=== PATIENT | female | born 1985 | race Caucasian/White ===

== ENCOUNTER 2024-02-07 19:46 | Emergency (ER) | payer BC, OTHER ==
[2024-02-07 20:00] VITALS: BP 0/0; BMI 33.5
== END 2024-02-07 20:17 | disposition left against medical advice (07) ==
LOC: FER 19:46
DX: O99.893 Other specified diseases and conditions complicating puerperium (principal); R07.81 Pleurodynia; R05.9 Cough, unspecified; Z3A.31 31 weeks gestation of pregnancy
CPT/HCPCS: 99281-25